=== PATIENT | female | born 1950 | race Hispanic/Latino ===

== ENCOUNTER 2016-08-25 08:50 | Outpatient (CLI) | payer MEDICARE ==
[2016-08-25 09:16] LABS: #Basophils 0.1 thou/uL (0.0-0.2); #Eosinphils 0.3 thou/uL (0.0-0.7); #Lymphocytes 1.1 thou/uL (1.20-3.40); #Neutrophils 4.5 thou/uL (1.40-6.50); %Basophils 1.2 % (0.0-1.0); %Eosinophils 4.7 % (0.0-10.0); %Lymphocytes 15.5 % (21.0-51.0); %Monocytes 14.6 % (0.0-10.0); Hemoglobin 12.4 g/dL (12.0-16.0); Mean Corpuscular HGB CONC 30.9 g/dL (32.0-36.0); Mean Corpuscular Hemoglobin 28.7 pg (27.0-31.0); Mean Corpuscular Volume 92.9 fl (81.0-99.0); Mean Platelet Volume 9.5 fL (7.4-10.4); Platelet Count 168 thou/uL (130-400); RBC Distribution Width 16.6 % (11.5-14.5); Red Blood Cell (RBC) Count 4.32 mill/uL (4.20-5.40)
[2016-08-25 09:19] LABS: Bilirubin Negative (Negative); Blood, Urine Negative (Negative); Clarity Clear (Clear); Glucose, Urine (Dipstick) 100 mg/dL (Negative); Leukocyte Small (Negative); Nitrite Negative (Negative); Protein, Urine (Dipstick) > or equal to 300 mg/dL (Neg-Trace); Urobilinogen 0.2 mg/dL (0.2-1.0)
[2016-08-25 09:26] LABS: Albumin - Urine 150 mg/L (< 20 mg/L); Albumin/Creatinine Ratio GREATER THAN 300 mg/g (< 30 mg/g); Creatinine, Urine 50 mg/dL (10-300mg/dL)
[2016-08-25 09:40] LABS: Hemoglobin A1c 5.3 % (4.0-6.0)
[2016-08-25 09:42] LABS: Bacteria/HPF Rare-Few HPF (None Seen); RBC/HPF None Seen HPF (0-3); Squamous Epithelial 0-3 HPF (0-3); WBC/HPF 0-3 HPF (0-3)
[2016-08-25 09:45] LABS: ALT (SGPT) 19 U/L (0-55); AST (SGOT) 19 U/L (5-34); Albumin 4.3 g/dL (3.4-4.8); Alkaline Phosphatase 113 U/L (40-150); Anion Gap 17 mmol/L (10-20); BUN (Urea Nitrogen) 45 mg/dL (9.8-20.1); Calc. Creatinine Clearance 0 mL/min (70-130); Calcium 9.1 mg/dL (7.8-10.44); Carbon Dioxide 26 mmol/L (23-31); Chloride 102 mmol/L (98-107); Cholesterol 192 mg/dL (< 200 Desired); Estimated GFR-MDRD 15; Globulin 2.8 g/dL (2.4-3.5); Glucose 86 mg/dL (80-115); HDL Cholesterol 65 mg/dL (>60 Neg Risk); LDL Cholesterol, Calculated 117 mg/dL; Potassium 4.9 mmol/L (3.5-5.1); Protein, Total 7.1 g/dL (5.8-8.1); Sodium 140 mmol/L (136-145); Triglycerides 50 mg/dL (Less than 150)
== END 2016-08-25 08:51 | disposition home or self-care (01) ==
LOC: NAV LAB 08:50
PROVIDERS: ATTEND Family Medicine
DX: I12.0 Hypertensive chronic kidney disease with stage 5 chronic kidney disease or end stage renal disease (principal); E11.65 Type 2 diabetes mellitus with hyperglycemia
CPT/HCPCS: 36415; 80053; 80061; 81001; 82044; 82570; 83036; 84443; 85025

== ENCOUNTER 2022-03-11 00:08 | Emergency (ER) | payer MEDICARE, OTHER ==
[2022-03-11 00:44] LABS: #Basophils 0.1 thou/uL (0.0-0.2); #Eosinphils 0.2 thou/uL (0.0-0.7); #Lymphocytes 0.6 thou/uL (1.20-3.40); #Monocytes 0.9 thou/uL (0.11-0.59); #Neutrophils 7.7 thou/uL (1.40-6.50); %Basophils 1.1 % (0.0-1.0); %Eosinophils 2.1 % (0.0-10.0); %Monocytes 9.8 % (0.0-10.0); %Neutrophils 81.1 % (42.0-75.0); Hemoglobin 11.8 g/dL (12.0-16.0); Mean Corpuscular HGB CONC 31.2 g/dL (32.0-36.0); Mean Corpuscular Hemoglobin 28.3 pg (27.0-31.0); Mean Corpuscular Volume 90.6 fl (78.0-98.0); Mean Platelet Volume 9.3 fL (7.4-10.4); Platelet Count 193 10x3/uL (130-400); RBC Distribution Width 13.8 % (11.5-14.5); Red Blood Cell (RBC) Count 4.17 mill/uL (4.20-5.40); White Blood Cell (WBC) Count 9.5 10x3/uL (4.8-10.8)
[2022-03-11 01:06] LABS: ALT (SGPT) 20 U/L (8-55); AST (SGOT) 20 U/L (5-34); Albumin 4.2 g/dL (3.4-4.8); Alkaline Phosphatase 65 U/L (40-110); Anion Gap 16 mmol/L (10-20); BUN (Urea Nitrogen) 35 mg/dL (9.8-20.1); Bilirubin, Total 0.9 mg/dL (0.2-1.2); Calc. Creatinine Clearance 0 mL/min (70-130); Calcium 9.4 mg/dL (7.8-10.44); Carbon Dioxide 22 mmol/L (23-31); Chloride 107 mmol/L (98-107); Estimated GFR 62; Globulin 2.9 g/dL (2.4-3.5); Protein, Total 7.1 g/dL (5.8-8.1); Sodium 141 mmol/L (136-145)
[2022-03-11 01:07] LABS: Glucose 77 mg/dL (83-110)
[2022-03-11] MEDS ORDERED: Furosemide 40 MG/4 ML VIAL ONE (01:44)
[2022-03-11] MEDS ORDERED: cefTRIAXone\\ROCEPHIN 1 GM VIAL ONE (01:44)
[2022-03-11] MEDS ORDERED: Sodium Chloride 0.9% 100 ML ONE (01:44)
[2022-03-11 06:01] LABS: Bilirubin Negative (Negative); Blood, Urine Negative (Negative); Clarity Clear (Clear); Glucose, Urine (Dipstick) Negative (Negative); Ketone, Urine Negative (Negative); Leukocyte Negative (Negative); Nitrite Negative (Negative); Protein, Urine (Dipstick) Negative (Neg-Trace); Specific Gravity, Urine 1.015 (1.005-1.030); Urobilinogen 0.2 mg/dL (Less than 2)
[2022-03-11 06:02] LABS: SARS-CoV-2 NAA Rapid Test DETECTED (NotDetected)
== END 2022-03-11 03:17 | disposition short-term general hospital (02) ==
LOC: NAV ERS 00:08
DX: U07.1 COVID-19 (principal); E11.649 Type 2 diabetes mellitus with hypoglycemia without coma; E11.22 Type 2 diabetes mellitus with diabetic chronic kidney disease; I12.9 Hypertensive chronic kidney disease with stage 1 through stage 4 chronic kidney disease, or unspecified chronic kidney disease; N18.9 Chronic kidney disease, unspecified; E78.5 Hyperlipidemia, unspecified; Z79.4 Long term (current) use of insulin; Z79.84 Long term (current) use of oral hypoglycemic drugs; Z79.899 Other long term (current) drug therapy; Z79.82 Long term (current) use of aspirin
CPT/HCPCS: 36416; 51702; 71045; 80053; 81003; 83605; 83880; 84484; 85025; 87040; 93005; 94640; 94760; 96365; 96374; J0696; J1940; J3490; J7620; U0002

== ENCOUNTER 2022-06-26 13:44 | Emergency (ER) | payer OTHER ==
[~2022-06-26 13:44] MED LIST: Iopamidol 370 76% 100 ML VIAL ONE
[2022-06-26 15:00] LABS: SARS-CoV-2 NAA Rapid Test Not Detected (NotDetected)
[2022-06-26 15:18] LABS: #Basophils 0.2 thou/uL (0.0-0.2); #Eosinphils 0.2 thou/uL (0.0-0.7); #Lymphocytes 0.6 thou/uL (1.20-3.40); #Monocytes 0.9 thou/uL (0.11-0.59); #Neutrophils 8.9 thou/uL (1.40-6.50); %Basophils 1.6 % (0.0-1.0); %Eosinophils 1.8 % (0.0-10.0); %Lymphocytes 5.5 % (21.0-51.0); %Monocytes 8.3 % (0.0-10.0); %Neutrophils 82.8 % (42.0-75.0); Hemoglobin 10.2 g/dL (12.0-16.0); Mean Corpuscular HGB CONC 29.2 g/dL (32.0-36.0); Mean Corpuscular Hemoglobin 26.3 pg (27.0-31.0); Mean Platelet Volume 8.3 fL (7.4-10.4); Platelet Count 273 10x3/uL (130-400); RBC Distribution Width 16.9 % (11.5-14.5); White Blood Cell (WBC) Count 10.7 10x3/uL (4.8-10.8)
[2022-06-26 15:23] LABS: Chloride 102 mmol/L (98-107); INR-International Normal Ratio 1.2; Potassium 3.9 mmol/L (3.5-5.1); Prothrombin Time 15.7 sec (12.0-14.7); Sodium 136 mmol/L (136-145)
[2022-06-26 15:24] LABS: PTT 31.3 sec (22.9-36.1)
[2022-06-26] MEDS ORDERED: Furosemide 40 MG/4 ML VIAL ONE (15:33)
[2022-06-26 15:53] LABS: ALT (SGPT) 12 U/L (8-55); AST (SGOT) 14 U/L (5-34); Albumin 3.9 g/dL (3.4-4.8); Alkaline Phosphatase 56 U/L (40-110); BUN (Urea Nitrogen) 23 mg/dL (9.8-20.1); Bilirubin, Total 1.6 mg/dL (0.2-1.2); CK (CPK) 44 U/L (29-168); Calc. Creatinine Clearance 0 mL/min (70-130); Calcium 8.9 mg/dL (7.8-10.44); Carbon Dioxide 24 mmol/L (23-31); Estimated GFR 78; Globulin 2.2 g/dL (2.4-3.5); Glucose 147 mg/dL (83-110); Magnesium 1.8 mg/dL (1.6-2.6); Protein, Total 6.1 g/dL (5.8-8.1)
[2022-06-26 15:57] LABS: Anion Gap 14 mmol/L (10-20)
[2022-06-26 15:59] LABS: Lipase Less than 4 U/L (8-78)
[2022-06-26 16:43] LABS: Bilirubin Negative (Negative); Blood, Urine Negative (Negative); Glucose, Urine (Dipstick) Negative (Negative); Ketone, Urine Negative (Negative); Leukocyte Moderate (Negative); Nitrite Negative (Negative); Protein, Urine (Dipstick) Negative (Neg-Trace); Specific Gravity, Urine 1.015 (1.005-1.030)
[2022-06-26 16:52] LABS: Clarity SL HAZY (Clear); RBC/HPF 0-3 HPF (0-3)
[2022-06-26 16:53] LABS: Renal Epithelial 0-3 HPF (None Seen); Squamous Epithelial 0-3 HPF (0-3)
[2022-06-26 17:13] LABS: Base Excess (BEa) POC ABG 2.2 mmol/L (-2.0 to +3.0); Calcium, Ionized 1.17 mmol/L (1.15-1.33); Chloride POC ABG 103 mmol/L (98-107); Hematocrit POC ABG 34 % (38-51); Hemoglobin POC ABG 11.5 g/dL (12.0-17.0); O2 Saturation (calc) POC ABG 96.7 % (94.0-98.0); Potassium POC ABG 3.6 mmol/L (3.5-4.5); Sodium POC ABG 137 mmol/L (138-146); pH (Arterial) 7.432 (7.35-7.45)
[2022-06-26] MEDS ORDERED: Sodium Chloride 0.9% 100 ML ONE ×2 (18:01→18:39)
[2022-06-26] MEDS ORDERED: cefTRIAXone\\ROCEPHIN 1 GM VIAL ONE ×2 (18:01→18:39)
[2022-06-26] MEDS ORDERED: hydrALAZINE 20 MG/ML VIAL ONE ×2 (19:01→20:50)
[2022-06-26] MEDS ORDERED: Labetalol HCl 100 MG/20 ML VIAL ONE (20:10)
== END 2022-06-26 21:10 | disposition short-term general hospital (02) ==
LOC: NAV ERS 13:44
DX: J81.1 Chronic pulmonary edema (principal); N39.0 Urinary tract infection, site not specified; R09.02 Hypoxemia; E78.5 Hyperlipidemia, unspecified; I12.9 Hypertensive chronic kidney disease with stage 1 through stage 4 chronic kidney disease, or unspecified chronic kidney disease; N18.9 Chronic kidney disease, unspecified; Z20.822 Contact with and (suspected) exposure to COVID-19
CPT/HCPCS: 71045; 71275; 80053; 82330; 82435; 82550; 82803; 83605; 83690; 83735; 83880; 84132; 84295; 85014; 85025; 85379; 85610; 85730; 87040; 87804 ×2; 93005; 96365; 96375; 96376; 99285; J0360; U0002; 81003; 81015; J0696; J1940; J3490; Q9967